=== PATIENT | female | born 1960 | race Caucasian/White ===

== ENCOUNTER 2016-12-18 01:27 | Emergency (ER) | payer SELFPAY ==
[2016-12-18 01:38] VITALS: O2SAT 98
[2016-12-18] MEDS ORDERED: Sodium Chloride 0.9% 1,000 ML IV ONE (01:52)
--- NOTE | 2016-12-18 01:53 | C.PDOC ---
History Of Present Illness 56 year old female with no significant PMHx presents to the ER for evaluation of feeling fatigued and diffuse abdominal discomfort for the past week, associated with nauseousness tonight and decreased appetite. Patient reports she is in the process of moving and admits to lifting heavy boxes lately. Denies fever, chills, headache, dizziness, neck pain, chest pain, SOB, dyspnea, diaphoresis, palpitation, vomiting, diarrhea, back pain, UTI sx. Ambulate to ED for evaluation, not in nay apparent distress. Time Seen by Provider: 12/18/16 01:32 Chief Complaint (Nursing): Abdominal Pain History Per: Patient History/Exam Limitations: no limitations Onset/Duration Of Symptoms: Days Current Symptoms Are (Timing): Still Present Location Of Pain/Discomfort: Diffuse Quality Of Discomfort: Unable To Describe Associated Symptoms: Nausea, Loss Of Appetite, Other (Fatigue). denies: Vomiting, Diarrhea, Chest Pain Exacerbating Factors: None Alleviating Factors: None Recent travel outside of the [place]: No Abnormal Vaginal Bleeding: No Past Medical History Reviewed: Historical Data, Nursing Documentation, Vital Signs Vital Signs: Last Vital Signs Temp 98.2 F 12/18/16 03:08 Pulse 60 12/18/16 03:08 Resp 16 12/18/16 03:08 BP 102/56 L 12/18/16 03:08 Pulse Ox 98 12/18/16 03:08 - Medical History PMH: Hypercholesterolemia Surgical History: Appendectomy, Cholecystectomy Family History: States: Unknown Family Hx - Social History Hx Alcohol Use: Yes Hx Substance Use: No - Immunization History Hx Tetanus Toxoid Vaccination: No Hx Influenza Vaccination: No Hx Pneumococcal Vaccination: No Review Of Systems Constitutional: Positive for: Other (Fatigue). Negative for: Sweats Cardiovascular: Positive for: Orthopnea. Negative for: Chest Pain Respiratory: Negative for: Shortness of Breath, Other (Dyspnea) Gastrointestinal: Positive for: Abdominal Pain. Negative for: Vomiting, Diarrhea Musculoskeletal: Negative for: Back Pain Physical Exam - Physical Exam Appears: Non-toxic, No Acute Distress Skin: Normal Color, Warm, Dry Head: Normacephalic Eye(s): bilateral: PERRL Nose: No Flaring, No Discharge Oral Mucosa: Moist, No Drooling Throat: No Erythema, No Exudate, No Drooling Neck: Trachea Midline, Supple Cardiovascular: Rhythm Regular, No Murmur, No JVD Respiratory: No Decreased Breath Sounds, No Accessory Muscle Use, No Rales, No Rhonchi, No Wheezing Gastrointestinal/Abdominal: Soft, Tenderness (Mild epigastric), No Distention, No Guarding, No Rebound Back: No CVA Tenderness Extremity: Normal ROM, No Pedal Edema, No Swelling Neurological/Psych: Oriented x3, Normal Speech, Normal Cognition ED Course And Treatment - Laboratory Results Result Diagrams: 12/18/16 02:06 12/18/16 02:06 Lab Interpretation: Normal ECG: Interpreted By Me, Viewed By Me ECG Rhythm: Sinus Rhythm ECG Interpretation: Normal Interpretation Of ECG: SR61/min,NAD, no acute T wave or ST-T changes. O2 Sat by Pulse Oximetry: 98 (Room air) Pulse Ox Interpretation: Normal Progress Note: Blood work, urinalysis, and EKG ordered. Pepcid, protonix, zofran , and IV fluids administered. Pt was OBs in ED for 1.5 hrs. On re-evaluation, pt reports moderate improvemnet in sx, denies abdominal pain at present time. Afebrile, hemodynamicaly stable. non-toxic. PulsEOx 98% RA. ENT: no acute findings. neck: Supple, (-) meningeal sign. Lungs: CTA B/L, BS equal B/L. Abd : benign, (-) guarding, (-) rebound. Back: (-) CVA tenderness. Blood work and UA rersults review and appears without acute abnormalities. EKG- normal study. Pt has clinical findings c/w epigastric pain. Pt advised and ref. to f/u with PMD, GI in 2-3 days for re-eval. return to ED if any worsening or new changes. Disposition Counseled Patient/Family Regarding: Studies Performed, Diagnosis, Need For Followup, Rx Given - Disposition Referrals: [facility] [Outside] Jessica GUERRA,MD Chris [Medical Doctor] - Disposition: HOME/ ROUTINE Disposition Time: : Condition: GOOD Additional Instructions: ENCOURAGE FLUIDS AVOID SPICY, GREASY FOOD TAKE MEDICATION PRESCRIBED FOLLOW UP WITH PMD, GI IN 2-3 DAYS FOR RE-EVALUATION. RETURN TO ED IF ANY WORSENING OR NEW CHANGES. Prescriptions: Famotidine [Pepcid] 20 mg PO BID #30 tab Pantoprazole Sodium [Protonix] 40 mg PO DAILY #30 tablet. Instructions: Epigastric Pain (ED) Forms: [employer] (Mohawk) Print Language: ARABIC - Clinical Impression Clinical Impression: Abdominal pain, Nausea - Scribe Statement The provider has reviewed the documentation as recorded by the Scribjorge alberto Aguirre All medical record entries made by the Yoanaibjorge alberto were at my direction and personally dictated by me. I have reviewed the chart and agree that the record accurately reflects my personal performance of the history, physical exam, medical decision making, and the department course for this patient. I have also personally directed, reviewed, and agree with the discharge instructions and disposition.
[2016-12-18] MEDS ORDERED: Sodium Chloride 0.9% 1,000 ML ONE (02:07)
[2016-12-18 02:09] LABS: BASO # 0.1 K/uL (0.0-0.2); BASO % 1.1 % (0.0-2.0); EOS # 0.2 K/uL (0.0-0.7); EOS % 2.1 % (0.0-4.0); HEMATOCRIT 36.3 % (34.0-47.0); LYMPH # 2.7 K/uL (1.0-4.3); LYMPH % 23.5 % (20.0-40.0); MEAN CELL VOLUME 90.3 fL (81.0-99.0); MEAN CORPUSCULAR HEMOGLOBIN 30.8 pg (27.0-31.0); MEAN CORPUSCULAR HGB CONC 34.1 g/dL (33.0-37.0); MEAN PLATELET VOLUME 6.7 fL (7.2-11.7); MONO # 0.8 K/uL (0.0-0.8); MONO % 6.9 % (0.0-10.0); NRBC % 0.1 % (0.0-2.0); WHITE BLOOD COUNT 11.4 K/uL (4.8-10.8)
[2016-12-18 02:14] LABS: RBC URINE 5 /hpf (0-3); URINE BILIRUBIN NEGATIVE (NEGATIVE); URINE BLOOD 1+ (NEGATIVE); URINE COLOR Yellow (YELLOW); URINE GLUCOSE (UA) NORMAL (Normal); URINE KETONE NEGATIVE (NEGATIVE); URINE LEUKOCYTE ESTERASE TRACE Leu/uL (Negative); URINE PROTEIN NEGATIVE (NEGATIVE); WBC URINE 6 /hpf (0-5)
[2016-12-18 02:33] LABS: CHLORIDE 99 mmol/L (98-107); POTASSIUM 3.7 mmol/L (3.6-5.2); SODIUM 134 mmol/L (132-148)
[2016-12-18 02:35] LABS: ALB/GLOB RATIO 1.1 (1.0-2.1); ALKALINE PHOSPHATASE 80 U/L (38-126); AMYLASE 102 U/L (30-110); AST/SGOT 20 U/L (14-36); BILIRUBIN,TOTAL 0.5 mg/dL (0.2-1.3); BLOOD UREA NITROGEN 17 mg/dL (7-17); CARBON DIOXIDE 24 mmol/L (22-30); GFR AFRICAN-AMERICAN > 60; TOTAL PROTEIN 7.8 g/dL (6.3-8.3)
[2016-12-18 02:36] LABS: ALT/SGPT 33 U/L (9-52); GLUCOSE,RANDOM 113 mg/dL (65-105)
[2016-12-18 03:09] VITALS: BP 102/56; PULSE 60; RESP 16; TEMP 98.2
--- NOTE | 2016-12-19 19:04 | CARD ---
APPROVED REPORT EKG Measurement Heart [id number] DC [id number] <Conclusion> Normal sinus rhythm Normal ECG
== END 2016-12-18 03:28 | disposition home or self-care (01) ==
LOC: C.ER 01:27
DX: R10.9 Unspecified abdominal pain (principal); R11.0 Nausea; E78.00 Pure hypercholesterolemia, unspecified
CPT/HCPCS: 36415; 80053; 81001; 82150; 83690; 84484; 85025; 87086; 93005; 96361; 96374; 96375; 99285; C9113; J2405; J7040

== ENCOUNTER 2017-03-27 14:08 | Emergency (ER) | payer SELFPAY ==
[2017-03-27 14:28] VITALS: BMI 26.4
[2017-03-27 14:32] VITALS: TEMP 98.4
[2017-03-27 15:23] VITALS: BP 112/75; PULSE 74; RESP 16; O2SAT 98
--- NOTE | 2017-03-27 15:42 | C.PDOC ---
History Of Present Illness 56 yr old female presents to the ER for evaluation of diffuse back pain for the past 2 weeks. Patient states she has been taking Motrin with mild relief. Denies trauma, chest pain, SOB, abdominal pain, dysuria, incontinence, weakness or numbness. Time Seen by Provider: 03/27/17 14:57 Chief Complaint (Nursing): Back Pain History Per: Patient History/Exam Limitations: no limitations Onset/Duration Of Symptoms: Days (2 weeks) Past Medical History Reviewed: Historical Data, Nursing Documentation, Vital Signs Vital Signs: Last Vital Signs Temp 98.4 F 03/27/17 14:27 Pulse 74 03/27/17 15:23 Resp 16 03/27/17 15:23 BP 112/75 03/27/17 15:23 Pulse Ox 98 03/27/17 15:44 - Medical History PMH: Hypercholesterolemia Family History: States: No Known Family Hx - Social History Hx Alcohol Use: Yes Hx Substance Use: No - Immunization History Hx Tetanus Toxoid Vaccination: No Hx Influenza Vaccination: No Hx Pneumococcal Vaccination: No Review Of Systems Except As Marked, All Systems Reviewed And Found Negative. Cardiovascular: Negative for: Chest Pain Respiratory: Negative for: Shortness of Breath Gastrointestinal: Negative for: Abdominal Pain Genitourinary: Negative for: Dysuria, Incontinence Musculoskeletal: Positive for: Back Pain (diffuse) Neurological: Negative for: Weakness, Numbness Physical Exam - Physical Exam Appears: Non-toxic, No Acute Distress Skin: Warm, Dry, No Rash Oral Mucosa: Moist Neck: Normal, Normal ROM, Supple Respiratory: Normal Breath Sounds, No Rales, No Rhonchi, No Stridor, No Wheezing Gastrointestinal/Abdominal: Normal Exam, Soft, No Tenderness, No Guarding, No Rebound Back: Normal Inspection, No CVA Tenderness Extremity: Normal ROM, No Swelling Neurological/Psych: Oriented x3, Normal Speech, Normal Motor, Normal Sensation ED Course And Treatment O2 Sat by Pulse Oximetry: 98 (RA) Pulse Ox Interpretation: Normal Disposition - Disposition Referrals: Replaced By [facility] [Outside] [facility] [Outside] Disposition: HOME/ ROUTINE Disposition Time: 16:25 Condition: GOOD Additional Instructions: Thank you for letting us take care of you today. The emergency medical care you received today was directed at your acute symptoms. If you were prescribed any medication, please fill it and take as directed. It may take several days for your symptoms to resolve. Return to the Emergency Department if your symptoms worsen, do not improve, or if you have any other problems. Please contact your doctor or call one of the physicians/clinics you have been referred to that are listed on the Patient Visit Information form that is included in your discharge packet. Bring any paperwork you were given at discharge with you along with any medications you are taking to your follow up visit. Our treatment cannot replace ongoing medical care by a primary care provider (PCP) outside of the emergency department. Thank you for allowing the [facility] team to be part of your care today. Follow up with the clinic in 3-4 days for re-evaluation and further management. Flora por dejarnos atenderlo hoy. La atencin mdica de emergencia que recibi hoy estaba dirigida a dorothy sntomas agudos. Si le prescribieron algn medicamento, llnelo y tome segn las indicaciones. Dorothy sntomas pueden tardar varios valadez en resolverse. Regrese al Departamento de Emergencia si dorothy s ntomas empeoran, no mejoran o si tiene algn otro problema. Comunquese con ray mdico o llame a yousuf de los mdicos / clnicas a los que jett sido referido que figura en el formulario de Informacin de visita del paciente que se incluye en ray paquete de apty. Traiga todos los documentos que recibi al momento del paty junto con los medicamentos que est tomando en ray visita de seguimiento. Nuestro tratamiento no puede reemplazar la atencin mdica en curso por parte de un proveedor de atencin primaria (PCP) fuera del departamento de emergencias. Flora por permitir que el equipo de [facility] sea parte de ray cuidado hoy. Haley un seguimiento con la clnica en 3-4 valadez para ping nueva evaluacin y ms administracin. Prescriptions: Cyclobenzaprine [Cyclobenzaprine HCl] 10 mg PO Q8 PRN #20 tab PRN Reason: Muscle Spasm Instructions: Musculoskeletal Pain (ED) Forms: Gen Discharge Inst Kyrgyz Print Language: CYPRIOT - Clinical Impression Clinical Impression: CHF (congestive heart failure) - Scribe Statement The provider has reviewed the documentation as recorded by the Scribe Keya Chacon Provider Attestation: All medical record entries made by the Scribe were at my direction and personally dictated by me. I have reviewed the chart and agree that the record accurately reflects my personal performance of the history, physical exam, medical decision making, and the department course for this patient. I have also personally directed, reviewed, and agree with the discharge instructions and disposition.
== END 2017-03-27 15:23 | disposition home or self-care (01) ==
LOC: C.ER 14:08
DX: I50.9 Heart failure, unspecified (principal); E78.00 Pure hypercholesterolemia, unspecified

== ENCOUNTER 2017-06-17 15:11 | Emergency (ER) | payer OTHER ==
[2017-06-17 15:11] VITALS: BMI 26.4
[2017-06-17 15:21] VITALS: RESP 18
[2017-06-17] MEDS: Sodium Chloride 0.9% 1,000 ML IV ONE (16:16)
[2017-06-17] MEDS ORDERED: Sodium Chloride 0.9% 1,000 ML ONE (16:17)
--- NOTE | 2017-06-17 16:18 | C.PDOC ---
History Of Present Illness 56-year-old female, presents to the emergency department with complaints of abdominal pain that started five days ago. Pain started in epigastric area, but is now periumbilical, associated with non-bloody/non-bilious vomiting and three episodes of loose stools. Patient denies any back pain, fevers, chills, chest pain pain or shortness of breath. Time Seen by Provider: 06/17/17 15:54 Chief Complaint (Nursing): Abdominal Pain History Per: Patient History/Exam Limitations: no limitations Past Medical History Reviewed: Historical Data, Nursing Documentation, Vital Signs Vital Signs: Last Vital Signs Temp 97.5 F L 06/17/17 17:03 Pulse 50 L 06/17/17 17:03 Resp 18 06/17/17 17:03 BP 107/62 06/17/17 17:03 Pulse Ox 100 06/17/17 17:03 - Medical History PMH: Hypercholesterolemia Family History: States: No Known Family Hx - Social History Hx Alcohol Use: No Hx Substance Use: No - Immunization History Hx Tetanus Toxoid Vaccination: No Hx Influenza Vaccination: No Hx Pneumococcal Vaccination: No Review Of Systems Constitutional: Negative for: Fever Cardiovascular: Negative for: Chest Pain Respiratory: Negative for: Shortness of Breath Gastrointestinal: Positive for: Nausea, Vomiting, Abdominal Pain, Diarrhea Musculoskeletal: Negative for: Back Pain Neurological: Negative for: Weakness, Headache, Dizziness Physical Exam - Physical Exam Appears: Non-toxic, No Acute Distress Skin: Warm, Dry, No Rash Head: Normacephalic Eye(s): bilateral: PERRL Nose: Normal Oral Mucosa: Moist Lips: Normal Appearing Neck: Normal ROM Chest: Symmetrical Cardiovascular: Rhythm Regular, No Murmur Respiratory: Normal Breath Sounds, No Accessory Muscle Use Gastrointestinal/Abdominal: Soft, Tenderness (epigastric), No Guarding, No Rebound Extremity: Normal ROM, No Deformity, No Swelling Neurological/Psych: Oriented x3, Normal Speech ED Course And Treatment - Laboratory Results Result Diagrams: 06/17/17 16:16 06/17/17 16:16 Lab Interpretation: No Acute Changes O2 Sat by Pulse Oximetry: 96 (RA) Pulse Ox Interpretation: Normal Reevaluation Time: 17:49 Reassessment Condition: Improved (Patient feels better and herat rate and BP improved after IV fluids) Medical Decision Making Medical Decision Making: Plan: * Bloodwork * IVF * UA * Reassess and Disposition Disposition Counseled Patient/Family Regarding: Studies Performed, Diagnosis, Need For Followup - Disposition Referrals: [facility] [Outside] Disposition: HOME/ ROUTINE Disposition Time: 17:50 Condition: IMPROVED Instructions: Viral Gastroenteritis, Adult (DC) Forms: Status[employer] (Cymraes) Print Language: MOSOTHO - Clinical Impression Clinical Impression: Gastroenteritis - Scribe Statement The provider has reviewed the documentation as recorded by the Scribe (Amina Pedraza) All medical record entries made by the Scribe were at my direction and personally dictated by me. I have reviewed the chart and agree that the record accurately reflects my personal performance of the history, physical exam, medical decision making, and the department course for this patient. I have also personally directed, reviewed, and agree with the discharge instructions and disposition.
[2017-06-17 16:20] LABS: BASO # 0.1 K/uL (0.0-0.2); EOS # 0.2 K/uL (0.0-0.7); EOS % 2.9 % (0.0-4.0); HEMOGLOBIN 13.2 g/dL (11.0-16.0); LYMPH # 2.6 K/uL (1.0-4.3); MEAN CORPUSCULAR HEMOGLOBIN 31.6 pg (27.0-31.0); MEAN CORPUSCULAR HGB CONC 35.1 g/dL (33.0-37.0); MEAN PLATELET VOLUME 6.7 fL (7.2-11.7); MONO # 0.4 K/uL (0.0-0.8); MONO % 5.9 % (0.0-10.0); NEUT # 3.4 K/uL (1.8-7.0); NEUT % 51.2 % (50.0-75.0); RBC 4.18 Mil/uL (3.80-5.20); RED CELL DISTRIBUTION WIDTH 12.9 % (11.5-14.5); WHITE BLOOD COUNT 6.7 K/uL (4.8-10.8)
[2017-06-17 16:48] LABS: SQUAMOUS EPITHIAL 3 /hpf (0-5); URINE BACTERIA RARE (<OCC); URINE BILIRUBIN NEGATIVE (NEGATIVE); URINE BLOOD 2+ (NEGATIVE); URINE CLARITY Clear (Clear); URINE COLOR Yellow (YELLOW); URINE GLUCOSE (UA) NORMAL (Normal); URINE LEUKOCYTE ESTERASE NEG Leu/uL (Negative); URINE PROTEIN NEGATIVE (NEGATIVE); URINE UROBILINOGEN NORMAL mg/dL (0.2-1.0)
[2017-06-17 16:55] LABS: ALB/GLOB RATIO 1.1 (1.0-2.1); ALBUMIN 4.1 g/dL (3.5-5.0); ALT/SGPT 17 U/L (9-52); AST/SGOT 19 U/L (14-36); BLOOD UREA NITROGEN 14 mg/dL (7-17); CALCIUM 9.6 mg/dl (8.6-10.4); GFR AFRICAN-AMERICAN > 60; GFR NON-AFRICAN AMERICAN > 60; LIPASE 193 U/L (23-300)
[2017-06-17 17:52] VITALS: BP 128/71; PULSE 54; TEMP 98; O2SAT 100
== END 2017-06-17 17:53 | disposition home or self-care (01) ==
LOC: C.ER 15:11
DX: K52.9 Noninfective gastroenteritis and colitis, unspecified (principal)
CPT/HCPCS: 80053; 81001; 83690; 85025; 96360; 99285; J7040